=== PATIENT | male | born 1955 | race Caucasian/White ===

== ENCOUNTER 2020-09-17 18:31 | Inpatient (IN) ==
[2020-09-17] MEDS ORDERED: MORPHINE 4 MG/1 ML VIAL IV ONE (19:21)
[2020-09-17] MEDS ORDERED: ONDANSETRON 4 MG/2 ML VIAL IV STA (19:21)
[2020-09-17] MEDS ORDERED: SODIUM CHLORIDE 0.9% 1,000 ML IV STA (19:21)
[2020-09-17 19:34] LABS: Basophils % 0.1 % (0.0-0.8); Hematocrit 35.7 VOL% (42.0-52.0); Hemoglobin 11.7 GM/DL (14.0-18.0); Immature Granulocytes % 0.4 %; Immature Granulocytes Absolute 0.06 #; Lymphocytes # 0.5 10*3/uL (1.4-4.0); Lymphocytes % 3.6 % (21.2-54.2); Mean Corpuscular HGB Conc 32.8 GM/DL (32-36); Mean Corpuscular Volume 95.2 FL (87-102); Mean Platelet Volume 10.4 FL (9.6-12.0); Monocytes % 4.3 % (1.7-12.7); Neutrophils % 91.6 % (38.7-73.9); Platelet Count 346 T/CUMM (130-400); Red Blood Count 3.75 MC/CUMM (3.8-5.5); Red Cell Distribution Width 13.7 % (9.3-17.3); White Blood Count 14.8 T/CUMM (4-12)
[2020-09-17 19:43] LABS: Alanine Aminotransferase 31 U/L (16-61); Albumin 4.2 G/DL (3.4-5.0); Alkaline Phosphatase 75 U/L (45-117); Amylase 39 U/L (25-115); Aspartate Amino Transferase 13 U/L (0-37); Bilirubin,Total < 0.39 MG/DL (0.2-1.0); Blood Urea Nitrogen 47 MG/DL (7-18); Calcium 9.3 MG/DL (8.5-10.1); Carbon Dioxide 23 MMOL/L (21-32); Estimated Glom Filtration Rate 19 ML/MIN; Glucose 156 MG/DL (74-106); Osmolality,Calculated 272.9 MOS/KG (273-304); Potassium 4.4 MMOL/L (3.5-5.1); Sodium 129 MMOL/L (136-145); Total Protein 7.9 G/DL (6.4-8.3)
[2020-09-17 19:58] LABS: Lymphocytes 5 % (20-55); Segmented Neutrophils 91 % (50-85); Total Cells Counted 100
[2020-09-17 19:59] LABS: Anisocytosis Slight; Hypochromasia Slight; Platelet Estimate Adequate
[2020-09-17] MEDS ORDERED: LEVOFLOXACIN INJ 750 MG in PREMIX 1 EACH IV STA (20:34)
[2020-09-17] MEDS ORDERED: ACETAMINOPHEN 325 MG TABLET PO PRN (23:37)
[2020-09-17] MEDS ORDERED: ONDANSETRON 4 MG/2 ML VIAL IV PRN (23:37)
[2020-09-17] MEDS ORDERED: oxyCODONE/ACETAMINOPHEN 5-325 MG TABLET PO PRN (23:44)
[2020-09-18] MEDS: oxyCODONE IR 5 MG TABLET PO PRN ×3 (00:33→18:48)
[2020-09-18] MEDS: SODIUM CHLORIDE 0.9% 1,000 ML IV SCH ×3 (00:40→14:56)
[2020-09-18] MEDS ORDERED: oxyCODONE IR 5 MG TABLET PO PRN (08:29)
[2020-09-18] MEDS: PANTOPRAZOLE 40 MG TABLET PO SCH (08:56)
[2020-09-18] MEDS: cefTRIAXone 1,000 MG in SYRINGE 1 EACH IV SCH (08:58)
[2020-09-18] MEDS ORDERED: PNEUMOCOCCAL VACCINE (13 VALENT) 0.5 ML SYRINGE IM ONE (09:00)
[2020-09-18] MEDS ORDERED: INFLUENZA VIRUS VACCINE 0.5 ML SYRINGE IM ONE (09:00)
[2020-09-18] MEDS: amLODIPine 10 MG TABLET PO SCH (09:58)
[2020-09-18] MEDS: BACLOFEN 10 MG TABLET PO SCH ×3 (09:58→22:10)
[2020-09-18] MEDS: POTASSIUM CHLORIDE 10 MEQ TABLET PO SCH ×2 (09:59→22:10)
[2020-09-18] MEDS: DOCUSATE SODIUM 100 MG CAPSULE PO SCH ×2 (10:00→22:09)
[2020-09-18] MEDS: AZITHROMYCIN INJ 500 MG in SODIUM CHLORIDE 0.9% 250 ML IV SCH (10:03)
[2020-09-18] MEDS: oxyCODONE/ACETAMINOPHEN 5-325 MG TABLET PO PRN (14:55)
[2020-09-18] MEDS: ZALEPLON 5 MG CAPSULE PO SCH (22:09)
[2020-09-18] MEDS: SIMVASTATIN 20 MG TABLET PO SCH (22:10)
[2020-09-19] MEDS: MORPHINE 4 MG/1 ML VIAL IV PRN (00:31)
[2020-09-19] MEDS ORDERED: FUROSEMIDE 20 MG/2 ML VIAL IV STA (03:38)
[2020-09-19] MEDS ORDERED: MORPHINE 4 MG/1 ML VIAL IV STA (03:40)
[2020-09-19 05:34] LABS: ABG Base Excess -1.2 MMOL/L (-2.5-2.5); ABG HCO3 24.5 MMOL/L (20-26); ABG Oxygen Saturation 92.7 % (95-100); ABG PCO2 44.9 MM HG (35-48); ABG PH 7.354 (7.35-7.45); ABG PO2 71.8 MM HG (80-95); ABG TCO2 25.8 MMOL/L (23-27)
[2020-09-19 06:06] LABS: Calcium 7.8 MG/DL (8.5-10.1); Osmolality,Calculated 277.1 MOS/KG (273-304); Potassium 4.8 MMOL/L (3.5-5.1)
[2020-09-19] MEDS: oxyCODONE IR 5 MG TABLET PO PRN ×2 (06:34→20:14)
[2020-09-19 07:05] LABS: Basophils % 0.1 % (0.0-0.8); Eosinophils % 0.1 % (0.00-10.9); Hematocrit 31.3 VOL% (42.0-52.0); Immature Granulocytes % 0.6 %; Immature Granulocytes Absolute 0.08 #; Lymphocytes # 0.4 10*3/uL (1.4-4.0); Lymphocytes % 2.8 % (21.2-54.2); Mean Corpuscular HGB Conc 31.9 GM/DL (32-36); Mean Corpuscular Volume 95.4 FL (87-102); Mean Platelet Volume 10.7 FL (9.6-12.0); Monocytes % 5.3 % (1.7-12.7); Neutrophils % 91.1 % (38.7-73.9); Platelet Count 288 T/CUMM (130-400); Red Blood Count 3.28 MC/CUMM (3.8-5.5); Red Cell Distribution Width 13.7 % (9.3-17.3); White Blood Count 14.4 T/CUMM (4-12)
[2020-09-19 07:27] LABS: Hypochromasia 1+; Lymphocytes 1 % (20-55); Microcytosis 1+; Platelet Estimate Adequate; Segmented Neutrophils 93 % (50-85); Total Cells Counted 100
[2020-09-19] MEDS: LEVOTHYROXINE 50 MCG TABLET PO SCH ×2 (07:49→09:04)
[2020-09-19] MEDS: ENOXAPARIN 30 MG/0.3 ML SYRINGE SUBCUT SCH (08:58)
[2020-09-19] MEDS: BACLOFEN 10 MG TABLET PO SCH ×3 (08:58→20:13)
[2020-09-19] MEDS: DOCUSATE SODIUM 100 MG CAPSULE PO SCH ×2 (08:58→20:13)
[2020-09-19] MEDS: POTASSIUM CHLORIDE 10 MEQ TABLET PO SCH ×2 (08:58→20:14)
[2020-09-19] MEDS: amLODIPine 10 MG TABLET PO SCH (09:03)
[2020-09-19] MEDS: PANTOPRAZOLE 40 MG TABLET PO SCH (09:03)
[2020-09-19] MEDS: oxyCODONE/ACETAMINOPHEN 5-325 MG TABLET PO PRN (09:05)
[2020-09-19] MEDS ORDERED: SODIUM CHLORIDE 0.9% 250 ML IV ONE ×2 (09:33→09:35)
[2020-09-19] MEDS ORDERED: FUROSEMIDE 40 MG/4 ML VIAL IV ONE (09:45)
[2020-09-19] MEDS: cefTRIAXone 1,000 MG in SYRINGE 1 EACH IV SCH (10:28)
[2020-09-19] MEDS: AZITHROMYCIN INJ 500 MG in SODIUM CHLORIDE 0.9% 250 ML IV SCH (10:29)
[2020-09-19] MEDS: SODIUM CHLORIDE 0.9% 1,000 ML IV SCH ×4 (11:25→15:13)
[2020-09-19] MEDS ORDERED: ALPRAZolam 0.25 MG TABLET PO PRN (11:39)
[2020-09-19] MEDS ORDERED: MAGNESIUM CITRATE 300 ML BOTTLE PO PRN (13:36)
[2020-09-19] MEDS ORDERED: SODIUM PHOSPHATE ENEMA 133 ML BOTTLE RECTAL PRN (13:36)
[2020-09-19] MEDS: methylPREDNISolone SOD SUC 40 MG/1 ML VIAL IV SCH ×2 (15:11→21:01)
[2020-09-19] MEDS: ALPRAZolam 0.25 MG TABLET PO SCH ×2 (15:11→20:13)
[2020-09-19] MEDS: ZALEPLON 5 MG CAPSULE PO SCH (20:13)
[2020-09-19] MEDS: SIMVASTATIN 20 MG TABLET PO SCH (20:14)
[2020-09-19] MEDS: ALBUTEROL/IPRATROPIUM 3 ML NEB RESP TX SCH (20:15)
[2020-09-19] MEDS: BUDESONIDE 0.25 MG/2 ML NEB RESP TX SCH (20:15)
[2020-09-20] MEDS: ALBUTEROL/IPRATROPIUM 3 ML NEB RESP TX SCH ×4 (00:05→19:10)
[2020-09-20] MEDS: MORPHINE 4 MG/1 ML VIAL IV PRN ×6 (01:59→23:29)
[2020-09-20] MEDS: oxyCODONE IR 5 MG TABLET PO PRN ×3 (03:57→20:32)
[2020-09-20] MEDS: methylPREDNISolone SOD SUC 40 MG/1 ML VIAL IV SCH ×3 (06:00→21:21)
[2020-09-20] MEDS: LEVOTHYROXINE 50 MCG TABLET PO SCH (06:00)
[2020-09-20] MEDS: BUDESONIDE 0.25 MG/2 ML NEB RESP TX SCH ×2 (07:05→19:10)
[2020-09-20 07:18] LABS: Hematocrit 30.8 VOL% (42.0-52.0); Hemoglobin 10.4 GM/DL (14.0-18.0); Immature Granulocytes % 0.2 %; Immature Granulocytes Absolute 0.01 #; Lymphocytes # 0.1 10*3/uL (1.4-4.0); Lymphocytes % 2.6 % (21.2-54.2); Mean Corpuscular HGB Conc 33.8 GM/DL (32-36); Mean Corpuscular Volume 94.5 FL (87-102); Mean Platelet Volume 11.1 FL (9.6-12.0); Monocytes % 0.9 % (1.7-12.7); Neutrophils % 96.3 % (38.7-73.9); Platelet Count 265 T/CUMM (130-400); Red Blood Count 3.26 MC/CUMM (3.8-5.5); Red Cell Distribution Width 13.6 % (9.3-17.3); White Blood Count 5.4 T/CUMM (4-12)
[2020-09-20] MEDS: cefTRIAXone 1,000 MG in SYRINGE 1 EACH IV SCH (08:31)
[2020-09-20 08:35] LABS: Calcium 8.1 MG/DL (8.5-10.1); Osmolality,Calculated 282.1 MOS/KG (273-304)
[2020-09-20] MEDS: DOCUSATE SODIUM 100 MG CAPSULE PO SCH ×3 (08:36→21:45)
[2020-09-20] MEDS: amLODIPine 5 MG TABLET PO SCH (08:36)
[2020-09-20] MEDS: POTASSIUM CHLORIDE 10 MEQ TABLET PO SCH ×2 (08:36→20:32)
[2020-09-20] MEDS: ALPRAZolam 0.25 MG TABLET PO SCH ×2 (08:36→20:32)
[2020-09-20] MEDS: PANTOPRAZOLE 40 MG TABLET PO SCH (08:36)
[2020-09-20] MEDS: BACLOFEN 10 MG TABLET PO SCH ×3 (08:36→20:32)
[2020-09-20] MEDS: ENOXAPARIN 30 MG/0.3 ML SYRINGE SUBCUT SCH (08:36)
[2020-09-20] MEDS: AZITHROMYCIN INJ 500 MG in SODIUM CHLORIDE 0.9% 250 ML IV SCH (08:41)
[2020-09-20] MEDS ORDERED: FUROSEMIDE 20 MG/2 ML VIAL IV SCH (09:00)
[2020-09-20 09:27] LABS: Anisocytosis 1+; Atypical Lymphocytes Few; Band Neutrophils 2 % (0-10); Lymphocytes 2 % (20-55); Macrocytosis 1+; Platelet Estimate Normal; Segmented Neutrophils 95 % (50-85); Total Cells Counted 100
[2020-09-20] MEDS ORDERED: ALPRAZolam 0.25 MG TABLET PO PRN (09:50)
[2020-09-20] MEDS: oxyCODONE/ACETAMINOPHEN 5-325 MG TABLET PO PRN (10:02)
[2020-09-20] MEDS: FUROSEMIDE 40 MG/4 ML VIAL IV SCH (18:25)
[2020-09-20] MEDS: SODIUM CHLORIDE 0.9% 1,000 ML IV SCH ×2 (18:32→19:10)
[2020-09-20] MEDS: ZALEPLON 5 MG CAPSULE PO SCH (20:31)
[2020-09-20] MEDS: SIMVASTATIN 20 MG TABLET PO SCH (20:32)
[2020-09-21] MEDS: ALBUTEROL/IPRATROPIUM 3 ML NEB RESP TX SCH ×4 (00:50→19:05)
[2020-09-21] MEDS: MORPHINE 4 MG/1 ML VIAL IV PRN ×3 (03:34→12:40)
[2020-09-21 04:13] LABS: Bilirubin,Urine Negative (Negative); Blood, Urine Moderate mg/dL (Negative); Glucose,Urine (UA) Negative (Negative); Ketones,Urine Negative (Negative); Nitrite,Urine Negative (Negative); Protein,Urine Negative; Urine Appearance CLEAR (Clear); Urine Color Straw (Yellow); Urine Specific Gravity 1.011 (1.001-1.035); Urine Urobilinogen < 2.0 EU/DL (0.2-1.0)
[2020-09-21] MEDS: oxyCODONE IR 5 MG TABLET PO PRN ×3 (04:35→22:46)
[2020-09-21] MEDS: SODIUM CHLORIDE 0.9% 1,000 ML IV SCH ×2 (04:58→22:31)
[2020-09-21] MEDS: methylPREDNISolone SOD SUC 40 MG/1 ML VIAL IV SCH ×3 (05:55→21:38)
[2020-09-21] MEDS: LEVOTHYROXINE 50 MCG TABLET PO SCH (05:55)
[2020-09-21] MEDS: FUROSEMIDE 40 MG/4 ML VIAL IV SCH ×2 (05:55→17:44)
[2020-09-21 06:31] LABS: Calcium 7.7 MG/DL (8.5-10.1); Osmolality,Calculated 286.2 MOS/KG (273-304); Potassium 4.7 MMOL/L (3.5-5.1)
[2020-09-21] MEDS: BUDESONIDE 0.25 MG/2 ML NEB RESP TX SCH ×2 (06:58→19:05)
[2020-09-21] MEDS: ALPRAZolam 0.25 MG TABLET PO SCH (09:49)
[2020-09-21] MEDS: DOCUSATE SODIUM 100 MG CAPSULE PO SCH ×2 (09:50→20:07)
[2020-09-21] MEDS: amLODIPine 5 MG TABLET PO SCH (09:50)
[2020-09-21] MEDS: BACLOFEN 10 MG TABLET PO SCH ×3 (09:50→20:06)
[2020-09-21] MEDS: PANTOPRAZOLE 40 MG TABLET PO SCH (09:50)
[2020-09-21] MEDS: POTASSIUM CHLORIDE 10 MEQ TABLET PO SCH ×2 (09:50→20:06)
[2020-09-21] MEDS: cefTRIAXone 1,000 MG in SYRINGE 1 EACH IV SCH (09:53)
[2020-09-21] MEDS: AZITHROMYCIN INJ 500 MG in SODIUM CHLORIDE 0.9% 250 ML IV SCH (09:56)
[2020-09-21] MEDS: ENOXAPARIN 30 MG/0.3 ML SYRINGE SUBCUT SCH (12:51)
[2020-09-21] MEDS ORDERED: HYDROmorphone 2 MG/1 ML VIAL IM PRN (13:13)
[2020-09-21] MEDS: ALPRAZolam 0.25 MG TABLET PO PRN ×2 (14:06→20:06)
[2020-09-21] MEDS ORDERED: NALOXONE 0.4 MG/ML VIAL IM PRN (14:30)
[2020-09-21] MEDS: HYDROmorphone 2 MG/1 ML VIAL IV PRN ×2 (17:40→21:41)
[2020-09-21] MEDS: oxyCODONE/ACETAMINOPHEN 5-325 MG TABLET PO PRN (19:13)
[2020-09-21] MEDS: SIMVASTATIN 20 MG TABLET PO SCH (20:06)
[2020-09-21] MEDS: ZALEPLON 5 MG CAPSULE PO SCH (20:06)
[2020-09-22] MEDS: ALBUTEROL/IPRATROPIUM 3 ML NEB RESP TX SCH ×4 (00:10→19:45)
[2020-09-22] MEDS: HYDROmorphone 2 MG/1 ML VIAL IV PRN ×6 (01:38→21:23)
[2020-09-22 05:31] LABS: Hematocrit 35.7 VOL% (42.0-52.0); Hemoglobin 11.4 GM/DL (14.0-18.0); Immature Granulocytes % 0.4 %; Immature Granulocytes Absolute 0.03 #; Lymphocytes # 0.2 10*3/uL (1.4-4.0); Lymphocytes % 2.9 % (21.2-54.2); Mean Corpuscular HGB Conc 31.9 GM/DL (32-36); Mean Platelet Volume 9.9 FL (9.6-12.0); Neutrophils % 92.7 % (38.7-73.9); Platelet Count 353 T/CUMM (130-400); Red Blood Count 3.72 MC/CUMM (3.8-5.5); Red Cell Distribution Width 13.4 % (9.3-17.3); White Blood Count 7.5 T/CUMM (4-12)
[2020-09-22] MEDS: LEVOTHYROXINE 50 MCG TABLET PO SCH (05:39)
[2020-09-22] MEDS: FUROSEMIDE 40 MG/4 ML VIAL IV SCH (05:39)
[2020-09-22] MEDS: methylPREDNISolone SOD SUC 40 MG/1 ML VIAL IV SCH ×3 (05:40→21:17)
[2020-09-22 05:58] LABS: Calcium 7.6 MG/DL (8.5-10.1); Osmolality,Calculated 282.7 MOS/KG (273-304); Potassium 4.8 MMOL/L (3.5-5.1)
[2020-09-22 06:04] LABS: Hypochromasia 1+; Lymphocytes 1 % (20-55); Microcytosis 1+; Segmented Neutrophils 95 % (50-85); Target Cells Slight; Total Cells Counted 100
[2020-09-22 06:05] LABS: Ovalocytes Slight; Platelet Estimate Normal
[2020-09-22] MEDS: oxyCODONE IR 5 MG TABLET PO PRN ×3 (06:36→23:14)
[2020-09-22] MEDS: BUDESONIDE 0.25 MG/2 ML NEB RESP TX SCH ×2 (07:14→19:45)
[2020-09-22] MEDS: AZITHROMYCIN INJ 500 MG in SODIUM CHLORIDE 0.9% 250 ML IV SCH (09:54)
[2020-09-22] MEDS: ALPRAZolam 0.25 MG TABLET PO PRN ×3 (09:54→21:16)
[2020-09-22] MEDS: POTASSIUM CHLORIDE 10 MEQ TABLET PO SCH ×2 (09:54→21:17)
[2020-09-22] MEDS: ENOXAPARIN 30 MG/0.3 ML SYRINGE SUBCUT SCH (09:54)
[2020-09-22] MEDS: PANTOPRAZOLE 40 MG TABLET PO SCH (09:54)
[2020-09-22] MEDS: amLODIPine 5 MG TABLET PO SCH (09:54)
[2020-09-22] MEDS: cefTRIAXone 1,000 MG in SYRINGE 1 EACH IV SCH (09:55)
[2020-09-22] MEDS: BACLOFEN 10 MG TABLET PO SCH ×3 (10:00→21:17)
[2020-09-22] MEDS: oxyCODONE/ACETAMINOPHEN 5-325 MG TABLET PO PRN (11:50)
[2020-09-22] MEDS: FUROSEMIDE 40 MG TABLET PO SCH (17:57)
[2020-09-22] MEDS: DOCUSATE SODIUM 100 MG CAPSULE PO SCH ×2 (18:31→21:25)
[2020-09-22] MEDS: SODIUM CHLORIDE 0.9% 1,000 ML IV SCH (18:34)
[2020-09-22] MEDS: ZALEPLON 5 MG CAPSULE PO SCH (21:16)
[2020-09-22] MEDS: SIMVASTATIN 20 MG TABLET PO SCH (21:17)
[2020-09-23] MEDS: ALBUTEROL/IPRATROPIUM 3 ML NEB RESP TX SCH ×4 (00:19→20:27)
[2020-09-23] MEDS: HYDROmorphone 2 MG/1 ML VIAL IV PRN ×6 (01:18→21:32)
[2020-09-23] MEDS: ALPRAZolam 0.25 MG TABLET PO PRN ×4 (03:18→21:33)
[2020-09-23 05:27] LABS: Calcium 7.8 MG/DL (8.5-10.1); Osmolality,Calculated 280.5 MOS/KG (273-304); Potassium 4.9 MMOL/L (3.5-5.1)
[2020-09-23] MEDS: LEVOTHYROXINE 50 MCG TABLET PO SCH (05:36)
[2020-09-23] MEDS: methylPREDNISolone SOD SUC 40 MG/1 ML VIAL IV SCH ×3 (05:38→21:33)
[2020-09-23] MEDS: oxyCODONE IR 5 MG TABLET PO PRN ×3 (07:11→23:16)
[2020-09-23] MEDS: BUDESONIDE 0.25 MG/2 ML NEB RESP TX SCH ×2 (07:15→20:27)
[2020-09-23] MEDS: cefTRIAXone 1,000 MG in SYRINGE 1 EACH IV SCH (09:27)
[2020-09-23] MEDS: ENOXAPARIN 30 MG/0.3 ML SYRINGE SUBCUT SCH (09:28)
[2020-09-23] MEDS: BACLOFEN 10 MG TABLET PO SCH ×3 (09:28→21:34)
[2020-09-23] MEDS: amLODIPine 5 MG TABLET PO SCH (09:28)
[2020-09-23] MEDS: POTASSIUM CHLORIDE 10 MEQ TABLET PO SCH ×2 (09:28→21:34)
[2020-09-23] MEDS: FUROSEMIDE 40 MG TABLET PO SCH ×2 (09:28→16:43)
[2020-09-23] MEDS: AZITHROMYCIN INJ 500 MG in SODIUM CHLORIDE 0.9% 250 ML IV SCH (09:30)
[2020-09-23] MEDS: DOCUSATE SODIUM 100 MG CAPSULE PO SCH ×2 (11:11→21:34)
[2020-09-23] MEDS: PANTOPRAZOLE 40 MG TABLET PO SCH (11:11)
[2020-09-23] MEDS: oxyCODONE/ACETAMINOPHEN 5-325 MG TABLET PO PRN (11:50)
[2020-09-23] MEDS: SODIUM CHLORIDE 0.9% 1,000 ML IV SCH (16:46)
[2020-09-23] MEDS: ZALEPLON 5 MG CAPSULE PO SCH (21:33)
[2020-09-23] MEDS: SIMVASTATIN 20 MG TABLET PO SCH (21:34)
[2020-09-24] MEDS: ALBUTEROL/IPRATROPIUM 3 ML NEB RESP TX SCH ×4 (01:38→19:26)
[2020-09-24] MEDS: HYDROmorphone 2 MG/1 ML VIAL IV PRN ×6 (01:41→21:52)
[2020-09-24] MEDS: ALPRAZolam 0.25 MG TABLET PO PRN ×4 (03:32→21:52)
[2020-09-24] MEDS: LEVOTHYROXINE 50 MCG TABLET PO SCH (05:36)
[2020-09-24] MEDS: methylPREDNISolone SOD SUC 40 MG/1 ML VIAL IV SCH ×3 (05:40→21:55)
[2020-09-24 05:42] LABS: Calcium 8.1 MG/DL (8.5-10.1); Osmolality,Calculated 278.8 MOS/KG (273-304); Potassium 4.6 MMOL/L (3.5-5.1)
[2020-09-24] MEDS: BUDESONIDE 0.25 MG/2 ML NEB RESP TX SCH ×2 (07:05→19:26)
[2020-09-24] MEDS: oxyCODONE IR 5 MG TABLET PO PRN ×3 (07:22→23:45)
[2020-09-24] MEDS: ENOXAPARIN 30 MG/0.3 ML SYRINGE SUBCUT SCH (08:33)
[2020-09-24] MEDS: amLODIPine 5 MG TABLET PO SCH (08:33)
[2020-09-24] MEDS: PANTOPRAZOLE 40 MG TABLET PO SCH (08:33)
[2020-09-24] MEDS: BACLOFEN 10 MG TABLET PO SCH ×3 (08:33→21:52)
[2020-09-24] MEDS: FUROSEMIDE 40 MG TABLET PO SCH ×2 (08:34→16:07)
[2020-09-24] MEDS: POTASSIUM CHLORIDE 10 MEQ TABLET PO SCH ×2 (08:34→21:52)
[2020-09-24] MEDS: SODIUM CHLORIDE 0.9% 1,000 ML IV SCH (08:58)
[2020-09-24] MEDS: DOCUSATE SODIUM 100 MG CAPSULE PO SCH ×2 (08:59→21:52)
[2020-09-24] MEDS: cefTRIAXone 1,000 MG in SYRINGE 1 EACH IV SCH (08:59)
[2020-09-24] MEDS: AZITHROMYCIN INJ 500 MG in SODIUM CHLORIDE 0.9% 250 ML IV SCH (09:30)
[2020-09-24] MEDS: oxyCODONE/ACETAMINOPHEN 5-325 MG TABLET PO PRN (12:19)
[2020-09-24] MEDS: SIMVASTATIN 20 MG TABLET PO SCH (21:52)
[2020-09-24] MEDS: ZALEPLON 5 MG CAPSULE PO SCH (21:52)
[2020-09-25] MEDS: ALBUTEROL/IPRATROPIUM 3 ML NEB RESP TX SCH ×2 (00:15→07:02)
[2020-09-25] MEDS: HYDROmorphone 2 MG/1 ML VIAL IV PRN ×3 (02:10→10:17)
[2020-09-25] MEDS: ALPRAZolam 0.25 MG TABLET PO PRN ×2 (04:01→10:18)
[2020-09-25] MEDS: LEVOTHYROXINE 50 MCG TABLET PO SCH (06:11)
[2020-09-25] MEDS: methylPREDNISolone SOD SUC 40 MG/1 ML VIAL IV SCH (06:15)
[2020-09-25] MEDS: BUDESONIDE 0.25 MG/2 ML NEB RESP TX SCH (07:02)
[2020-09-25] MEDS: oxyCODONE IR 5 MG TABLET PO PRN (07:48)
[2020-09-25] MEDS: SODIUM CHLORIDE 0.9% 1,000 ML IV SCH (08:24)
[2020-09-25] MEDS: BACLOFEN 10 MG TABLET PO SCH (08:39)
[2020-09-25] MEDS: FUROSEMIDE 40 MG TABLET PO SCH (08:39)
[2020-09-25] MEDS: POTASSIUM CHLORIDE 10 MEQ TABLET PO SCH (08:40)
[2020-09-25] MEDS: amLODIPine 5 MG TABLET PO SCH (08:40)
[2020-09-25] MEDS: PANTOPRAZOLE 40 MG TABLET PO SCH (08:40)
[2020-09-25] MEDS: ENOXAPARIN 30 MG/0.3 ML SYRINGE SUBCUT SCH (08:42)
[2020-09-25] MEDS: DOCUSATE SODIUM 100 MG CAPSULE PO SCH (08:42)
[2020-09-25] MEDS: cefTRIAXone 1,000 MG in SYRINGE 1 EACH IV SCH (09:53)
[2020-09-25] MEDS: oxyCODONE/ACETAMINOPHEN 5-325 MG TABLET PO PRN (11:39)
[2020-09-25 11:49] VITALS: BP 137/74
== END 2020-09-25 13:31 | disposition home or self-care (01) | DRG 682 ==
LOC: N.ED 18:31 → N.EDINP 21:49 → N.3E 22:25
PROVIDERS: ADMIT Family Medicine; ATTEND Family Medicine

== ENCOUNTER 2021-01-09 20:11 | Observation (INO) ==
[2021-01-09 20:34] LABS: Basophils # 0.1 10*3/uL (0.0-0.2); Basophils % 0.7 % (0.0-0.8); Eosinophils # 0.1 10*3/uL (0.0-0.87); Eosinophils % 1.1 % (0.00-10.9); Hematocrit 43.8 VOL% (42.0-52.0); Hemoglobin 14.3 GM/DL (14.0-18.0); Immature Granulocytes % 0.1 %; Immature Granulocytes Absolute 0.01 #; Lymphocytes # 1.8 10*3/uL (1.4-4.0); Lymphocytes % 23.5 % (21.2-54.2); Mean Corpuscular HGB Conc 32.6 GM/DL (32-36); Mean Corpuscular Volume 91.8 FL (87-102); Mean Platelet Volume 8.9 FL (9.6-12.0); Monocytes % 8.3 % (1.7-12.7); Neutrophils % 66.3 % (38.7-73.9); Platelet Count 302 T/CUMM (130-400); Red Blood Count 4.77 MC/CUMM (3.8-5.5); Red Cell Distribution Width 13.6 % (9.3-17.3); White Blood Count 7.5 T/CUMM (4-12)
[2021-01-09] MEDS ORDERED: ASPIRIN 325 MG TABLET PO STA (20:57)
[2021-01-09] MEDS ORDERED: NITROGLYCERIN SL 0.4 MG TABLET SL PRN (20:57)
[2021-01-09] MEDS ORDERED: LORazepam 2 MG/1 ML VIAL IV STA (20:58)
[2021-01-09 21:03] LABS: Albumin 4.6 G/DL (3.4-5.0); Bilirubin,Total 0.4 MG/DL (0.2-1.0); Calcium 9.2 MG/DL (8.5-10.1); Osmolality,Calculated 275.5 MOS/KG (273-304); Potassium 3.7 MMOL/L (3.5-5.1); Total Protein 7.5 G/DL (6.4-8.2)
[2021-01-09 21:10] LABS: INR 0.9; PT Patient Result 10.7 SECS (10.5-12.0)
[2021-01-09] MEDS ORDERED: ONDANSETRON 4 MG/2 ML VIAL IV PRN (22:08)
[2021-01-09] MEDS ORDERED: ACETAMINOPHEN 325 MG TABLET PO PRN (22:08)
[2021-01-09] MEDS ORDERED: LORazepam 2 MG/1 ML VIAL IV PRN (22:10)
[2021-01-10] MEDS: oxyCODONE ER 20 MG TABLET PO SCH ×3 (00:10→10:32)
[2021-01-10] MEDS ORDERED: BACLOFEN 10 MG TABLET PO ONE (00:29)
[2021-01-10] MEDS ORDERED: LEVOTHYROXINE 50 MCG TABLET PO SCH (09:00)
[2021-01-10] MEDS ORDERED: DOCUSATE SODIUM 100 MG CAPSULE PO SCH (09:00)
[2021-01-10] MEDS ORDERED: BACLOFEN 10 MG TABLET PO SCH (09:00)
[2021-01-10] MEDS ORDERED: IPRATROPIUM 0.03% NASAL SPRAY 30 ML BOTTLE BOTH NARES SCH (09:00)
[2021-01-10] MEDS ORDERED: PANTOPRAZOLE 40 MG TABLET PO SCH (09:00)
[2021-01-10] MEDS ORDERED: amLODIPine 10 MG TABLET PO SCH (09:00)
[2021-01-10] MEDS ORDERED: ALPRAZolam 0.25 MG TABLET PO PRN (10:24)
[2021-01-10] MEDS ORDERED: oxyCODONE/ACETAMINOPHEN 5-325 MG TABLET PO PRN (10:37)
[2021-01-10 12:03] VITALS: BP 143/83
[2021-01-10] MEDS ORDERED: POTASSIUM CHLORIDE 10 MEQ TABLET PO SCH (21:00)
[2021-01-10] MEDS ORDERED: SIMVASTATIN 20 MG TABLET PO SCH ×2 (21:00)
== END 2021-01-10 13:01 | disposition home or self-care (01) ==
LOC: N.ED 20:11 → N.EDINP 20:11 → N.TELEN 23:56
PROVIDERS: ADMIT Family Medicine; ATTEND Family Medicine

== ENCOUNTER 2022-05-07 14:12 | Observation (INO) ==
[2022-05-07] MEDS ORDERED: ONDANSETRON 4 MG/2 ML VIAL IV STA (14:39)
[2022-05-07] MEDS ORDERED: HYDROmorphone 1 MG/1 ML SYRINGE IV STA (14:39)
[2022-05-07] MEDS ORDERED: SODIUM CHLORIDE 0.9% 1,000 ML IV STA (14:39)
[2022-05-07 15:21] LABS: Basophils # 0.1 10*3/uL (0.0-0.2); Basophils % 0.9 % (0.0-0.8); Eosinophils % 0.6 % (0.00-10.9); Hematocrit 42.4 VOL% (42.0-52.0); Hemoglobin 13.5 GM/DL (14.0-18.0); Immature Granulocytes % 0.4 %; Immature Granulocytes Absolute 0.03 #; Lymphocytes # 1.1 10*3/uL (1.4-4.0); Mean Corpuscular HGB Conc 31.8 GM/DL (32-36); Mean Corpuscular Volume 87.8 FL (87-102); Mean Platelet Volume 9.1 FL (9.6-12.0); Monocytes # 0.4 10*3/uL (0.11-0.8); Neutrophils % 76.1 % (38.7-73.9); Platelet Count 304 T/CUMM (130-400); Red Blood Count 4.83 MC/CUMM (3.8-5.5); Red Cell Distribution Width 14.5 % (9.3-17.3); White Blood Count 7.1 T/CUMM (4-12)
[2022-05-07 16:05] LABS: Alanine Aminotransferase 21 U/L (16-61); Albumin 3.5 G/DL (3.4-5.0); Alkaline Phosphatase 81 U/L (45-117); Aspartate Amino Transferase 14 U/L (0-37); Bilirubin,Total < 0.39 MG/DL (0.20-1.00); Blood Urea Nitrogen 9 MG/DL (7-18); Calcium 9.8 MG/DL (8.5-10.1); Carbon Dioxide 30 MMOL/L (21-32); Chloride 100 MMOL/L (98-107); Glucose 144 MG/DL (74-106); Osmolality,Calculated 278.5 MOS/KG (273-304); Potassium 3.6 MMOL/L (3.5-5.1); Sodium 139 MMOL/L (136-145); Total Protein 7.9 G/DL (6.4-8.2)
[2022-05-07] MEDS ORDERED: BISACODYL 5 MG TABLET PO PRN (16:28)
[2022-05-07] MEDS ORDERED: ACETAMINOPHEN 325 MG TABLET PO PRN (16:28)
[2022-05-07] MEDS ORDERED: ONDANSETRON 4 MG/2 ML VIAL IV PRN (16:28)
[2022-05-07] MEDS ORDERED: METHOCARBAMOL 750 MG TABLET PO PRN (16:31)
[2022-05-07] MEDS ORDERED: NON-FORMULARY MEDICATION (Sildenafil [Viagra] 50 mg Tablet) PO PRN (16:31)
[2022-05-07] MEDS ORDERED: METHOCARBAMOL 500 MG TABLET PO PRN (16:31)
[2022-05-07] MEDS: HYDROmorphone 1 MG/1 ML SYRINGE IV PRN ×2 (18:15→21:18)
[2022-05-07] MEDS ORDERED: INFLUENZA VIRUS VACCINE 0.5 ML SYRINGE IM ONE (18:43)
[2022-05-07] MEDS: SODIUM CHLORIDE 0.9% 1,000 ML IV SCH (19:07)
[2022-05-07] MEDS ORDERED: ACYCLOVIR 200 MG CAPSULE PO SCH (21:00)
[2022-05-07] MEDS ORDERED: ENOXAPARIN 40 MG/0.4 ML SYRINGE SUBCUT SCH (21:00)
[2022-05-07] MEDS ORDERED: ZALEPLON 5 MG CAPSULE PO SCH (21:00)
[2022-05-07] MEDS: clonazePAM 0.5 MG TABLET PO SCH (21:16)
[2022-05-07] MEDS: POTASSIUM CHLORIDE 10 MEQ TABLET PO SCH (21:16)
[2022-05-07 22:16] LABS: Bilirubin,Urine Negative (Negative); Blood, Urine Negative (Negative); Glucose,Urine (UA) Negative (Negative); Ketones,Urine Negative (Negative); Nitrite,Urine Negative (Negative); Protein,Urine 30 mg/dL (Negative); Urine Appearance Slightly Cloudy (Clear); Urine Color Yellow (Yellow); Urine Specific Gravity 1.025 (1.001-1.035); Urine Urobilinogen 0.2 eU/dL (<2.0); Urine pH 7.5 (4.5-8.0)
[2022-05-07 22:21] LABS: Amorphous Crystals,Urine Occasional /HPF (Few); Mucus,Urine Occasional /LPF (Occasional)
[2022-05-08] MEDS: HYDROmorphone 1 MG/1 ML SYRINGE IV PRN ×3 (00:21→06:24)
[2022-05-08] MEDS: SODIUM CHLORIDE 0.9% 1,000 ML IV SCH ×2 (02:15→10:00)
[2022-05-08] MEDS ORDERED: LEVOTHYROXINE 50 MCG TABLET PO SCH (06:00)
[2022-05-08] MEDS: clonazePAM 0.5 MG TABLET PO SCH (06:20)
[2022-05-08 07:09] LABS: Calcium 8.6 MG/DL (8.5-10.1); Osmolality,Calculated 273.7 MOS/KG (273-304); Potassium 4.5 MMOL/L (3.5-5.1)
[2022-05-08 07:37] VITALS: BP 146/83
[2022-05-08] MEDS ORDERED: HYDROmorphone 1 MG/1 ML SYRINGE IV STA (08:55)
[2022-05-08] MEDS ORDERED: IPRATROPIUM 0.03% NASAL SPRAY 30 ML BOTTLE BOTH NARES SCH (09:00)
[2022-05-08] MEDS ORDERED: PANTOPRAZOLE 40 MG TABLET PO SCH (09:00)
[2022-05-08] MEDS ORDERED: amLODIPine 10 MG TABLET PO SCH (09:00)
[2022-05-08] MEDS ORDERED: ACYCLOVIR 200 MG CAPSULE PO SCH (09:00)
[2022-05-08] MEDS: POTASSIUM CHLORIDE 10 MEQ TABLET PO SCH (09:16)
== END 2022-05-08 10:45 | disposition home or self-care (01) ==
LOC: N.ED 14:12 → N.EDINP 14:12 → N.3E 18:22
PROVIDERS: ADMIT Family Medicine; ATTEND Family Medicine